=== PATIENT | female | born 1995 | race Two or more races ===

== ENCOUNTER → 2018-04-24 | Emergency (ER) | payer OTHER ==
[~2018-04-24] VITALS: Ht 175.3 cm; Wt 68.0 kg
[~2018-04-24] MED LIST: IBUPROFEN600 MG PO; ORPHENADRINE C100 MG PO
== END | disposition home or self-care (01) ==
LOC: ER 01:48
DX: S43.085A Other dislocation of left shoulder joint, initial encounter (principal); V49.9XXA Car occupant (driver) (passenger) injured in unspecified traffic accident, initial encounter; Y93.89 Activity, other specified; Y92.488 Other paved roadways as the place of occurrence of the external cause; Y99.8 Other external cause status